=== PATIENT | male | born 1990 | race African-American/Black ===

== ENCOUNTER 2024-04-15 11:16 | Emergency (ER) | payer MEDICAID, OTHER ==
[~2024-04-15] VITALS: Ht 165.1 cm; Wt 68.5 kg
[2024-04-15 11:40] VITALS: PULSE 78; RESP 14; O2SAT 92
[2024-04-15] MEDS: SODIUM CHLORIDE 0.9% 1,000 ML IVB ONE (12:12)
[2024-04-15] MEDS: HALOPERIDOL LACTATE 5 MG/ML INJ VIAL IM ONE (13:13)
[2024-04-15] MEDS: diphenhdrAMINE HCL 50 MG/1 ML VL IV ONE (13:14)
[2024-04-15] MEDS: LORazepam 2MG/ML-1ML VIAL IV ONE (13:14)
[2024-04-15 15:11] LABS: Alanine Aminotransferase 36 U/L (7-40); Albumin 3.3 g/dL (3.2-4.8); Alkaline Phosphatase 107 U/L (46-116); Anion Gap 4 (5-15); Aspartate Aminotransferase 40 U/L (13-40); BUN/Creatinine Ratio 19.3 (10.0-20.0); Bilirubin, Total 0.3 mg/dL (0.2-1.0); Blood Alcohol < 3.0 mg/dL (<10); Blood Urea Nitrogen 22 mg/dL (9-23); Calcium 8.2 mg/dL (8.5-10.1); Carbon Dioxide 27 mmol/L (20-30); Chloride 109 mmol/L (98-107); Glucose 98 mg/dL (74-106); Potassium 3.9 mmol/L (3.5-5.1); Sodium 140 mmol/L (136-145); Total Protein 5.3 g/dL (5.7-8.2)
[2024-04-15 15:56] LABS: Basophils # (auto) 0 10 ^3/uL (0-0.2); Basophils % (auto) 0.5 % (0.0-2.0); Eosinophils # (auto) 0.1 10 ^3/uL (0-0.8); Eosinophils % (auto) 2.3 % (0.0-7.0); Hematocrit 36.2 % (41.0-53.0); Hemoglobin 12.2 g/dL (13.5-17.5); Lymphocytes # (auto) 1.5 10 ^3/uL (0.4-5.4); Mean Corpuscular Hemoglobin 29.5 pg (28.0-32.0); Mean Corpuscular Hgb Conc. 33.7 g/dL (32.0-36.0); Mean Corpuscular Volume 87.6 fL (80.0-100.0); Monocytes # (auto) 0.6 10 ^3/uL (0-1.3); Monocytes % (auto) 10.1 % (0.0-12.0); Neutrophils # (auto) 3.7 10 ^3/uL (1.6-8.6); Neutrophils % (auto) 62.1 % (37.0-80.0); Nucleated Red Blood Cells % 0.1 %; Red Blood Cells 4.14 10^6/uL (4.5-5.90); Red Cell Distribution Width 13.3 % (11.8-14.3); White Blood Cell 5.9 10^3/uL (4.4-10.8)
[2024-04-15 17:13] LABS: Urine Bacteria None Seen /hpf (None Seen)
[2024-04-15 17:37] LABS: Urine Blood Negative /uL (Negative); Urine Clarity Clear (Clear); Urine Color Light-Yellow (Yellow); Urine Protein, UAD TRACE (Negative); Urine Sperm PRESENT /hpf (None Seen); Urine Urobilinogen Normal (Negative); Urine WBC 1 /hpf (0 - 3)
[2024-04-15 17:43] LABS: Amphetamine Screen, Urine Pos (NEGATIVE); Barbiturate Scree,Urine Neg (NEGATIVE); Benzodiazephine Screen, Urine Pos (NEGATIVE); Cannabinoid Screen, Urine Pos (NEGATIVE); Cocaine Screen, Urine Neg (NEGATIVE); Opiate Scree,Urine Neg (NEGATIVE); Phencyclidine Screen, Urine Neg (NEGATIVE)
[2024-04-15 20:00] VITALS: PULSE 77; RESP 15; TEMP 98.9; O2SAT 100
[2024-04-15] MEDS ORDERED: ACETAMINOPHEN 325 MG TAB PO PRN (21:45)
[2024-04-15] MEDS ORDERED: ONDANSETRON HCL 4 MG/2 ML VIAL IV PRN (21:45)
[2024-04-15] MEDS ORDERED: DOCUSATE SOD 100 MG CAP PO PRN (21:45)
[2024-04-15] MEDS ORDERED: HYDROcodone-ACET 5/325MG TAB PO PRN (21:45)
[2024-04-15] MEDS: SODIUM CHLOR 0.9% PF (SALINE LOCK) 10ML VIAL/SYR IV SCH (22:19)
[2024-04-15 23:00] VITALS: BP 98/69; PULSE 92; RESP 17; O2SAT 100
== END 2024-04-16 00:06 | disposition left against medical advice (07) ==
LOC: EDBD 11:16 → ER 11:16
DX: G92.9 Unspecified toxic encephalopathy (principal); Z79.899 Other long term (current) drug therapy
CPT/HCPCS: 36415; 80053; 80307; 80320; 81001; 85025; 93005; 96361; 96372; 96374; 96375; 99285; J1200; J1630; J2060; J7030